=== PATIENT | male | born 1990 | race African-American/Black ===

== ENCOUNTER 2018-04-21 13:34 | Emergency (ER) | payer MEDICAID, OTHER ==
[~2018-04-21] VITALS: Ht 172.7 cm; Wt 72.0 kg
[2018-04-21] MEDS ORDERED: IBUPROFEN 600MG TABLET PO ONE (15:15)
[2018-04-21 15:31] VITALS: BP 115/77
== END 2018-04-21 16:14 | disposition home or self-care (01) ==
LOC: ER 15:49
DX: L03.114 Cellulitis of left upper limb (principal)
CPT/HCPCS: 73130; 99284

== ENCOUNTER 2020-01-09 15:53 | Inpatient (IN) | payer MEDICAID, OTHER ==
[~2020-01-09] VITALS: Ht 175.3 cm; Wt 79.4 kg
[2020-01-09] MEDS ORDERED: FAMOTIDINE 20MG/2ML VIAL IV STA (18:00)
[2020-01-09] MEDS ORDERED: SODIUM CHLORIDE 0.9% 1,000 ML IV ONE (18:00)
[2020-01-09] MEDS ORDERED: ONDANSETRON HCL 4MG/2ML INJ IV STA (18:00)
[2020-01-09 18:35] LABS: BASOPHILS % 0.6 % (0.0-2.0); EOSINOPHILS % 0.7 % (0.0-5.0); HEMATOCRIT. 48.2 % (42.0-52.0); HEMOGLOBIN. 15.6 g/dL (14.0-18.0); LYMPHOCYTES % 16.8 % (20.0-50.0); MEAN CORPUSCULAR HEMOGLOBIN 23.4 pg (28.0-32.0); MEAN CORPUSCULAR VOLUME 72.2 fL (80.0-94.0); MEAN PLATELET VOLUME 7.8 fl (7.4-10.4); MONOCYTES % 3.8 % (2.0-8.0); NEUTROPHILS % 78.1 % (40.0-76.0); PLATELET 322 x1000/uL (130-400); RED BLOOD CELL COUNT 6.68 mill/uL (4.7-6.1); RED CELL DISTRIBUTION WIDTH 14.2 % (11.6-14.6)
[2020-01-09 18:40] LABS: PROTHROMBIN TIME 10.7 sec (9.6-11.0)
[2020-01-09 18:41] LABS: CHLORIDE 102 mEq/L (98-107)
[2020-01-09 18:44] LABS: ETHANOL BLOOD < 10 mg/dL
[2020-01-09] MEDS ORDERED: DIATR MEGLU/DIATRIZOATE SOLN 30ML ONE (18:53)
[2020-01-09] MEDS ORDERED: MORPHINE SULFATE 4 MG/ML CPJ (NOT FOR IM USE) IV ONE ×3 (19:30→22:00)
[2020-01-09 20:43] LABS: CLARITY URINE CLEAR (CLEAR); COLOR URINE DARK YELLOW (YELLOW); KETONES URINE TRACE (NEGATIVE); LEUKOCYTE ESTERASE URINE NEGATIVE (NEGATIVE); NITRITE URINE NEGATIVE (NEGATIVE); OCCULT BLOOD URINE NEGATIVE (NEGATIVE); PH URINE 6.5 (4.5-8.0); PROTEIN URINE TRACE (NEGATIVE); SPECIFIC GRAVITY URINE 1.028 (1.005-1.030)
[2020-01-09] MEDS ORDERED: CEFTRIAXONE 1 G PREMIX 50 ML IV ONE (20:45)
[2020-01-09] MEDS ORDERED: METRONIDAZOLE 500 MG PREMIX 100 ML IV ONE (20:45)
[2020-01-09 20:54] LABS: *AMPHETAMINES SCREEN URINE NEGATIVE (NEGATIVE); *BARBITURATES SCREEN URINE NEGATIVE (NEGATIVE); *BENZODIAZEPINES SCREEN URINE NEGATIVE (NEGATIVE); *COCAINE SCREEN URINE NEGATIVE (NEGATIVE); METHADONE URINE SCREEN NEGATIVE (NEGATIVE); OPIATES URINE SCREEN NEGATIVE (NEGATIVE)
[2020-01-09 20:56] LABS: CANNABINOID URINE SCREEN NEGATIVE (NEGATIVE); PHENCYCLIDINE URINE SCREEN NEGATIVE (NEGATIVE)
[2020-01-09] MEDS ORDERED: IOHEXOL-300 100 ML BOTTLE ONE (21:57)
[2020-01-10] VITALS: BP 120/69
[2020-01-10 00:15] VITALS: BP 120/69
[2020-01-10] MEDS ORDERED: ONDANSETRON HCL 4MG/2ML INJ IV PRN (02:00)
[2020-01-10] MEDS ORDERED: HYDRALAZINE 20MG/ML VIAL IV PRN (02:00)
[2020-01-10] MEDS ORDERED: DEXT 5%/0.45% NACL 1000ML 1,000 ML IV SCH (02:00)
[2020-01-10] MEDS: MORPHINE SULFATE 2 MG/ML CPJ (NOT FOR IM USE) IV PRN ×3 (02:19→18:02)
[2020-01-10 04:00] VITALS: BP 140/80
[2020-01-10 06:59] LABS: CHLORIDE 102 mEq/L (98-107)
[2020-01-10 07:04] LABS: BASOPHILS % 0.3 % (0.0-2.0); HEMATOCRIT. 42.2 % (42.0-52.0); LYMPHOCYTES % 12.8 % (20.0-50.0); MEAN CORPUSCULAR HEMOGLOBIN 23.7 pg (28.0-32.0); MEAN CORPUSCULAR VOLUME 71.5 fL (80.0-94.0); MEAN PLATELET VOLUME 7.9 fl (7.4-10.4); MONOCYTES % 4.3 % (2.0-8.0); NEUTROPHILS % 82.6 % (40.0-76.0); PLATELET 292 x1000/uL (130-400); RED BLOOD CELL COUNT 5.91 mill/uL (4.7-6.1); RED CELL DISTRIBUTION WIDTH 13.8 % (11.6-14.6)
[2020-01-10 08:00] VITALS: BP 111/73
[2020-01-10] MEDS ORDERED: ENOXAPARIN 40MG/0.4ML SYR SUBCUT SCH (09:00)
[2020-01-10] MEDS ORDERED: NEOSTIGMINE METHYLSULFATE 1MG/ML 10 ML VIAL ONE (10:28)
[2020-01-10] MEDS ORDERED: MIDAZOLAM HCL 2 MG/2 ML VIAL ONE (10:28)
[2020-01-10] MEDS ORDERED: PROPOFOL 200MG/20ML VIAL IV ONE (10:28)
[2020-01-10] MEDS ORDERED: FENTANYL CITRATE/PF 50MCG/ML 2ML VIAL ONE (10:28)
[2020-01-10] MEDS ORDERED: ROCURONIUM BROMIDE 10MG/ML VIAL 5ML IV ONE (10:28)
[2020-01-10] MEDS ORDERED: GLYCOPYRROLATE 0.2 MG/ML 2ML VIAL ONE (10:29)
[2020-01-10] MEDS ORDERED: DEXAMETHASONE 4MG/ML 1ML VIAL ONE (10:40)
[2020-01-10] MEDS ORDERED: ONDANSETRON HCL 4MG/2ML INJ ONE (10:40)
[2020-01-10] MEDS ORDERED: METRONIDAZOLE 500 MG PREMIX 100 ML IV ONE (11:00)
[2020-01-10] MEDS ORDERED: HYDROMORPHONE HCL/PF 2MG/ML (OR) ONE ×2 (11:11→11:30)
[2020-01-10] MEDS: BUPIVACAINE HCL 0.5% 290 ML in ON-Q PM015 DRUG DELIV DEVICE 1 EA IR SCH (12:22)
[2020-01-10 14:45] VITALS: BP 117/75
[2020-01-10 16:00] VITALS: BP 119/68
[2020-01-10 16:40] LABS: HEMATOCRIT. 38.6 % (42.0-52.0); HEMOGLOBIN. 12.7 g/dL (14.0-18.0); MEAN CORPUSCULAR HEMOGLOBIN 23.3 pg (28.0-32.0); MEAN CORPUSCULAR VOLUME 71.1 fL (80.0-94.0); MEAN PLATELET VOLUME 7.7 fl (7.4-10.4); PLATELET 291 x1000/uL (130-400); RED BLOOD CELL COUNT 5.43 mill/uL (4.7-6.1); RED CELL DISTRIBUTION WIDTH 13.8 % (11.6-14.6)
[2020-01-10 16:45] LABS: CHLORIDE 102 mEq/L (98-107)
[2020-01-10] MEDS: DEXT 5%/0.45% NACL KCL 20MEQ/L 1,000 ML IV SCH ×2 (18:08→22:19)
[2020-01-10 21:01] LABS: PLATELET ESTIMATE NORMAL
[2020-01-10] MEDS: MORPHINE SULFATE 4 MG/ML CPJ (NOT FOR IM USE) IV PRN (22:18)
[2020-01-11] VITALS (7 sets, daily range): BP systolic 126–180; BP diastolic 73–92
[2020-01-11] MEDS: MORPHINE SULFATE 2 MG/ML CPJ (NOT FOR IM USE) IV PRN ×4 (04:56→14:50)
[2020-01-11] MEDS: ENOXAPARIN 40MG/0.4ML SYR SUBCUT SCH (08:53)
[2020-01-11] MEDS: DEXT 5%/0.45% NACL KCL 20MEQ/L 1,000 ML IV SCH ×2 (08:58→23:15)
[2020-01-11] MEDS: BUPIVACAINE HCL 0.5% 290 ML in ON-Q PM015 DRUG DELIV DEVICE 1 EA IR SCH (11:38)
[2020-01-11] MEDS: ONDANSETRON HCL 4MG/2ML INJ IV PRN (20:14)
[2020-01-11] MEDS: MORPHINE SULFATE 4 MG/ML CPJ (NOT FOR IM USE) IV PRN (21:08)
[2020-01-12] VITALS: BP 132/72
[2020-01-12 04:00] VITALS: BP 145/86
[2020-01-12] MEDS: MORPHINE SULFATE 2 MG/ML CPJ (NOT FOR IM USE) IV PRN ×4 (05:09→20:28)
[2020-01-12] MEDS: ONDANSETRON HCL 4MG/2ML INJ IV PRN ×3 (05:18→13:53)
[2020-01-12] MEDS: DEXT 5%/0.45% NACL KCL 20MEQ/L 1,000 ML IV SCH ×3 (05:18→23:35)
[2020-01-12 08:00] VITALS: BP 135/78
[2020-01-12] MEDS: ENOXAPARIN 40MG/0.4ML SYR SUBCUT SCH (09:50)
[2020-01-12 12:00] VITALS: BP 129/76
[2020-01-12 16:00] VITALS: BP 127/72
[2020-01-12 20:00] VITALS: BP 131/80
[2020-01-13] VITALS: BP 131/81
[2020-01-13 04:00] VITALS: BP 131/79
[2020-01-13] MEDS: ONDANSETRON HCL 4MG/2ML INJ IV PRN ×2 (05:40→17:30)
[2020-01-13] MEDS: MORPHINE SULFATE 2 MG/ML CPJ (NOT FOR IM USE) IV PRN ×5 (05:40→21:55)
[2020-01-13 07:13] LABS: BASOPHILS % 0.4 % (0.0-2.0); EOSINOPHILS % 1.1 % (0.0-5.0); HEMATOCRIT. 28.7 % (42.0-52.0); HEMOGLOBIN. 9.6 g/dL (14.0-18.0); LYMPHOCYTES % 27.3 % (20.0-50.0); MEAN CORPUSCULAR HEMOGLOBIN 24.1 pg (28.0-32.0); MEAN CORPUSCULAR VOLUME 71.7 fL (80.0-94.0); MEAN PLATELET VOLUME 8.1 fl (7.4-10.4); MONOCYTES % 7.6 % (2.0-8.0); NEUTROPHILS % 63.6 % (40.0-76.0); PLATELET 288 x1000/uL (130-400); RED BLOOD CELL COUNT 3.99 mill/uL (4.7-6.1); RED CELL DISTRIBUTION WIDTH 13.7 % (11.6-14.6)
[2020-01-13 07:32] LABS: CHLORIDE 100 mEq/L (98-107)
[2020-01-13 08:00] VITALS: BP 134/75
[2020-01-13] MEDS: ENOXAPARIN 40MG/0.4ML SYR SUBCUT SCH (09:00)
[2020-01-13] MEDS: OMEPRAZOLE 20MG CAPSULE EXTENDED RELEASE PO SCH (09:32)
[2020-01-13] MEDS: DEXT 5%/0.45% NACL KCL 20MEQ/L 1,000 ML IV SCH ×2 (09:36→22:32)
[2020-01-13 12:00] VITALS: BP 140/86
[2020-01-13 16:00] VITALS: BP 136/79
[2020-01-13 20:00] VITALS: BP 145/75
[2020-01-14] VITALS: BP 138/72
[2020-01-14 04:00] VITALS: BP 148/92
[2020-01-14] MEDS: ONDANSETRON HCL 4MG/2ML INJ IV PRN ×3 (06:04→21:44)
[2020-01-14] MEDS: MORPHINE SULFATE 2 MG/ML CPJ (NOT FOR IM USE) IV PRN ×5 (06:05→21:44)
[2020-01-14] MEDS: OMEPRAZOLE 20MG CAPSULE EXTENDED RELEASE PO SCH ×2 (06:27→06:35)
[2020-01-14 08:00] VITALS: BP_SYST 132; BP_SYST 140; BP_DIAS 80; BP_DIAS 91
[2020-01-14] MEDS: ENOXAPARIN 40MG/0.4ML SYR SUBCUT SCH (08:18)
[2020-01-14] MEDS: DEXT 5%/0.45% NACL KCL 20MEQ/L 1,000 ML IV SCH ×2 (09:50→16:00)
[2020-01-14 12:00] VITALS: BP 140/80
[2020-01-14 16:00] VITALS: BP 138/68
[2020-01-14 20:00] VITALS: BP 130/65
[2020-01-14] MEDS: FAMOTIDINE 20MG TABLET PO SCH ×2 (21:00→21:22)
[2020-01-15] VITALS: BP 144/68
[2020-01-15] MEDS: DEXT 5%/0.45% NACL KCL 20MEQ/L 1,000 ML IV SCH ×3 (01:51→21:04)
[2020-01-15 04:00] VITALS: BP 150/72
[2020-01-15] MEDS: MORPHINE SULFATE 2 MG/ML CPJ (NOT FOR IM USE) IV PRN (05:21)
[2020-01-15 08:23] VITALS: BP 123/72
[2020-01-15] MEDS: ENOXAPARIN 40MG/0.4ML SYR SUBCUT SCH (08:57)
[2020-01-15] MEDS: FAMOTIDINE 20MG TABLET PO SCH ×4 (08:57→21:04)
[2020-01-15 11:01] VITALS: BP 143/68
[2020-01-15] MEDS ORDERED: MORPHINE SULFATE 2 MG/ML CPJ (NOT FOR IM USE) IV PRN (12:00)
[2020-01-15 14:38] LABS: HEMATOCRIT 31.5 % (42.0-52.0); HEMOGLOBIN 10.4 g/dL (14.0-18.0); MEAN CORPUSCULAR HEMOGLOBIN 23.8 pg (28.0-32.0); MEAN CORPUSCULAR VOLUME 71.7 fL (80.0-94.0); PLATELET 476 x1000/uL (130-400); RED BLOOD CELL COUNT 4.39 mill/uL (4.7-6.1); RED CELL DISTRIBUTION WIDTH 13.6 % (11.6-14.6)
[2020-01-15 15:49] VITALS: BP 135/87
[2020-01-15 17:05] LABS: TOTAL IRON BINDING CAPACITY 251 ug/dL (250-450)
[2020-01-15 17:47] LABS: FOLIC ACID (FOLATE) SERUM 10.5 ng/mL (>5.38)
[2020-01-15] MEDS ORDERED: MORPHINE SULFATE 2 MG/ML CPJ (NOT FOR IM USE) IV NR (18:00)
[2020-01-15 20:00] VITALS: BP 120/76
[2020-01-15] MEDS: ONDANSETRON HCL 4MG/2ML INJ IV PRN (21:31)
[2020-01-15 23:40] LABS: HEMATOCRIT 31.5 % (42.0-52.0); HEMOGLOBIN 10.4 g/dL (14.0-18.0)
[2020-01-16] VITALS: BP 126/70
[2020-01-16] MEDS: MORPHINE SULFATE 2 MG/ML CPJ (NOT FOR IM USE) IV PRN ×3 (01:29→10:29)
[2020-01-16 04:00] VITALS: BP 107/66
[2020-01-16] MEDS: FAMOTIDINE 20MG TABLET PO SCH ×2 (08:21→08:24)
[2020-01-16] MEDS: DEXT 5%/0.45% NACL KCL 20MEQ/L 1,000 ML IV SCH (08:23)
[2020-01-16 12:26] VITALS: BP 112/75
[2020-01-16] MEDS ORDERED: HYDROCODONE/ACETAMINOPHEN 5/325MG TABLET PO PRN ×2 (13:15)
[2020-01-16 14:14] VITALS: BP 122/72
== END 2020-01-16 15:15 | disposition left against medical advice (07) | DRG 230 ==
LOC: ER 15:53 → 6WST 22:22 → EDBEDREQTM 22:24 → EDBEDREQ 22:24 → EDBEDREQTM 23:12 → EDBEDREQSVC 23:12 → ENRESERV 23:27
PROVIDERS: ADMIT Internal Medicine; ATTEND Internal Medicine
PROC: 0DB80ZZ Excision of Small Intestine, Open Approach (ICD-10-PCS; principal; 2020-01-10)
DX: K56.51 Intestinal adhesions [bands], with partial obstruction (principal); K55.069 Acute infarction of intestine, part and extent unspecified; K62.5 Hemorrhage of anus and rectum; K56.2 Volvulus; E87.1 Hypo-osmolality and hyponatremia; D50.9 Iron deficiency anemia, unspecified; Z79.899 Other long term (current) drug therapy
CPT/HCPCS: 36415; 74018; 74022; 74177; 78278; 80048; 80053; 80305; 80320; 81003; 82607; 82728; 82746; 83540; 83550; 85014; 85018; 85025; 85027; 86850; 86900; 88307; 96365; 97116; 97162; 97530; 99285; A9560; J0360; J0696; J1100; J1170; J1650; J2250; J2270; J2405; J2704; J2710; J3010; J3490; J7030; Q9963; Q9967; G0480

== ENCOUNTER 2020-02-03 16:57 | Emergency (ER) | payer MEDICAID, OTHER ==
[~2020-02-03] VITALS: Ht 175.3 cm; Wt 60.9 kg
[2020-02-03] MEDS ORDERED: HYDR-3281 PO (17:05)
[2020-02-03] MEDS ORDERED: MORPHINE SULFATE 4 MG/ML CPJ (NOT FOR IM USE) IV STA (17:40)
[2020-02-03] MEDS ORDERED: SODIUM CHLORIDE 0.9% 1,000 ML IV ONE (17:40)
[2020-02-03] MEDS ORDERED: ONDANSETRON HCL 4MG/2ML INJ IV STA (17:40)
[2020-02-03 18:28] LABS: BASOPHILS % 0.7 % (0.0-2.0); CHLORIDE 105 mEq/L (98-107); EOSINOPHILS % 1.6 % (0.0-5.0); HEMATOCRIT. 37.5 % (42.0-52.0); HEMOGLOBIN. 12.2 g/dL (14.0-18.0); LYMPHOCYTES % 27.9 % (20.0-50.0); MEAN PLATELET VOLUME 7.8 fl (7.4-10.4); MONOCYTES % 5.2 % (2.0-8.0); NEUTROPHILS % 64.6 % (40.0-76.0); PLATELET 444 x1000/uL (130-400); RED BLOOD CELL COUNT 5.07 mill/uL (4.7-6.1); RED CELL DISTRIBUTION WIDTH 15.1 % (11.6-14.6)
[2020-02-03 18:33] LABS: ETHANOL BLOOD < 10 mg/dL
[2020-02-03 19:47] LABS: *AMPHETAMINES SCREEN URINE PRESUMTIVE POSITIVE (NEGATIVE)
[2020-02-03 19:48] LABS: *BARBITURATES SCREEN URINE NEGATIVE (NEGATIVE); *BENZODIAZEPINES SCREEN URINE NEGATIVE (NEGATIVE); *COCAINE SCREEN URINE NEGATIVE (NEGATIVE); METHADONE URINE SCREEN NEGATIVE (NEGATIVE); OPIATES URINE SCREEN PRESUMTIVE POSITIVE (NEGATIVE); PHENCYCLIDINE URINE SCREEN NEGATIVE (NEGATIVE)
[2020-02-03 19:49] LABS: CANNABINOID URINE SCREEN NEGATIVE (NEGATIVE)
[2020-02-03 19:53] LABS: CLARITY URINE CLEAR (CLEAR); COLOR URINE YELLOW (YELLOW); KETONES URINE NEGATIVE (NEGATIVE); LEUKOCYTE ESTERASE URINE NEGATIVE (NEGATIVE); NITRITE URINE NEGATIVE (NEGATIVE); OCCULT BLOOD URINE NEGATIVE (NEGATIVE); PH URINE 7.5 (4.5-8.0); PROTEIN URINE NEGATIVE (NEGATIVE); SPECIFIC GRAVITY URINE 1.023 (1.005-1.030)
[2020-02-03 20:38] VITALS: BP 140/83
== END 2020-02-03 20:40 | disposition home or self-care (01) ==
LOC: ER 16:57
DX: L76.32 Postprocedural hematoma of skin and subcutaneous tissue following other procedure (principal); Z98.890 Other specified postprocedural states; Z87.828 Personal history of other (healed) physical injury and trauma; Y83.8 Other surgical procedures as the cause of abnormal reaction of the patient, or of later complication, without mention of misadventure at the time of the procedure; Y92.018 Other place in single-family (private) house as the place of occurrence of the external cause
CPT/HCPCS: 36415; 74176; 80053; 80305; 80320; 81003; 83690; 85025; 96374; 96375; 99284; J2270; J2405; J7030; G0480

== ENCOUNTER 2020-03-24 14:20 | Emergency (ER) | payer MEDICAID ==
[~2020-03-24] VITALS: Ht 175.3 cm; Wt 68.0 kg
[~2020-03-24 14:20] MED LIST: HYDR-3281 PO
[2020-03-24 14:23] VITALS: BP 129/77
[2020-03-24] MEDS ORDERED: CEFTRIAXONE SODIUM 250 MG/VIAL IM ONE (16:15)
[2020-03-24] MEDS ORDERED: AZITHROMYCIN 500 MG TABLET PO ONE (16:15)
[2020-03-24 16:27] LABS: CLARITY URINE CLEAR (CLEAR); COLOR URINE YELLOW (YELLOW); KETONES URINE 1+ (NEGATIVE); LEUKOCYTE ESTERASE URINE 2+ (NEGATIVE); NITRITE URINE NEGATIVE (NEGATIVE); OCCULT BLOOD URINE NEGATIVE (NEGATIVE); PH URINE 5.5 (4.5-8.0); PROTEIN URINE NEGATIVE (NEGATIVE); SPECIFIC GRAVITY URINE 1.017 (1.005-1.030)
[2020-03-24] MEDS ORDERED: LIDOCAINE HCL 1% 20ML VIAL (Pyxis) INJ INFIL ONE (16:30)
[2020-03-27 06:07] LABS: NEISSERIA GONORRHOEAE NAA Positive (Negative)
== END 2020-03-24 16:49 | disposition home or self-care (01) ==
LOC: ER 14:20
DX: A64 Unspecified sexually transmitted disease (principal); Z98.890 Other specified postprocedural states
CPT/HCPCS: 81003; 87086; 87491; 87591; 96372; 99283; J0696; J3490

== ENCOUNTER 2020-04-15 20:56 | Emergency (ER) | payer MEDICAID ==
[~2020-04-15] VITALS: Ht 172.7 cm; Wt 66.0 kg
[2020-04-15 22:30] VITALS: BP 125/74
== END 2020-04-15 22:33 | disposition home or self-care (01) ==
LOC: ER 20:56
DX: T81.41XA Infection following a procedure, superficial incisional surgical site, initial encounter (principal); B99.8 Other infectious disease; S60.512D Abrasion of left hand, subsequent encounter; S60.511D Abrasion of right hand, subsequent encounter; Y08.89XD Assault by other specified means, subsequent encounter; Y83.8 Other surgical procedures as the cause of abnormal reaction of the patient, or of later complication, without mention of misadventure at the time of the procedure; Y93.89 Activity, other specified; Y92.018 Other place in single-family (private) house as the place of occurrence of the external cause
CPT/HCPCS: 99283